=== PATIENT | female | born 1990 | race Caucasian/White ===

== ENCOUNTER 2018-07-02 16:35 | Emergency (ER) | payer BC ==
--- NOTE | 2018-07-02 17:40 | ED ---
SOB HPI - General Chief Complaint: Shortness of Breath Stated Complaint: Sob Time Seen by Provider: 07/02/18 17:21 Source: patient, RN notes reviewed Mode of arrival: wheelchair Limitations: no limitations - History of Present Illness Initial Comments: This is a 28-year-old female who presents to the emergency department with chief complaint of shortness of breath. Patient states that approximately an hour and half ago she was at work. 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 She states that she had sudden onset of shortness of breath, stating she felt she could not catch her breath. Patient states that she is 8 weeks . She denies any chest pain, cough, fever or chills, abdominal pain, nausea or vomiting. She states that while here in the emergency department, her symptoms have improved. - Related Data Allergies Allergy/AdvReac Type Severity Reaction Status Date / Time No Known Allergies Allergy Verified 07/02/18 16:39 Review of Systems ROS Statement: Those systems with pertinent positive or pertinent negative responses have been documented in the HPI. ROS Other: All systems not noted in ROS Statement are negative. Past Medical History Past Medical History: No Reported History History of Any Multi-Drug Resistant Organisms: None Reported Past Surgical History: No Surgical Hx Reported Past Psychological History: Anxiety Smoking Status: Never smoker Past Alcohol Use History: None Reported Past Drug Use History: None Reported General Exam - General Exam Comments Initial Comments: General: Awake and alert, well-developed; in no apparent distress. HEENT: Head atraumatic, normocephalic. Pupils are equal, round and reactive to light. Extraocular movements intact. Oropharynx moist without erythema or exudate. Neck: Supple. Normal ROM. Cardiovascular: Regular rate and rhythm. No murmurs, rubs or gallops. Chest symmetrical. Respiratory: Lungs clear to auscultation bilaterally. No wheezes, rales or rhonchi. Normal respiratory effort with no use of accessory muscles. Musculoskeletal: Normal ROM, no tenderness bilateral upper and lower extremities. Ambulating normally. Skin: [place], warm and dry without rashes or lesions. Neurological: Alert and oriented x3. CN II-XII grossly intact. Speech is fluent and answers are appropriate. No focal neuro deficits. Psychiatric: Normal mood and affect. No overt signs of depression or anxiety noted. Limitations: no limitations (Temperature 97.8, pulse 69, respirations 20, blood pressure 116/77, 100% on room air) Course Vital Signs 07/02/18 07/02/18 16:37 17:39 Temperature 97.8 F Pulse Rate 69 Respiratory 20 20 Rate Blood Pressure 116/77 O2 Sat by Pulse 100 Oximetry Medical Decision Making - Medical Decision Making This is a 28-year-old female, currently 8 weeks , who presents to the emergency department with a chief complaint of shortness of breath. Patient denies chest pain. Vital signs are stable and she is 100% on room air. EKG was obtained which revealed sinus bradycardia with normal rhythm. Discussed with patient increased risk of blood clots in and obtaining a d-dimer , however patient refuses at this time. Patient states her symptoms have improved. She states she will follow-up with her primary care provider. This case was discussed with attending physician, Dr. Cowan. Patient's vital signs have been stable throughout emergency department stay and she is in no acute distress. She will be discharged home at this time. She is in agreement and voices understanding. All questions were answered. - EKG Data EKG Comments: 7156:[id number]. Sinus bradycardia. Low voltage QRS. Ventricular rate 51 bpm, MA interval 158, QRS duration 88, QT/QTc 448/412. Disposition Clinical Impression: Shortness of breath Disposition: HOME SELF-CARE Condition: Good Instructions: Shortness of Breath (ED) Additional Instructions: Please follow up with primary care provider within 1-2 days. Return to emergency department if symptoms should worsen or any concerns arise. Is patient prescribed a controlled substance at d/c from ED?: No Referrals: Todd Vazquez DO [Primary Care Provider] - 1-2 days Time of Disposition: 18:28
[2018-07-02 18:41] VITALS: BP 100/58; PULSE 73; RESP 16; TEMP 98.3
== END 2018-07-02 18:41 | disposition home or self-care (01) ==
LOC: EC 16:35
DX: O99.89 Other specified diseases and conditions complicating pregnancy, childbirth and the puerperium (principal); R06.02 Shortness of breath; R00.1 Bradycardia, unspecified; Z3A.08 8 weeks gestation of pregnancy
CPT/HCPCS: 93005; 99284

== ENCOUNTER 2018-10-21 01:30 | Outpatient (CLI) | payer OTHER, BC ==
[2018-10-21 02:11] LABS: Appearance,Urine Clear (Clear); Bacteria,Urine Occasional /hpf; Bilirubin,Urine Negative (Negative); Blood,Urine Negative (Negative); Color,Urine Light Yellow; Glucose,Urine (UA) Negative (Negative); Ketones,Urine Negative (Negative); Leukocyte Esterase,Urine Small (Negative); Mucus,Urine Rare /hpf; Nitrite,Urine Negative (Negative); Protein,Urine Negative (Negative); RBC,Urine 2 /hpf (0-5); Specific Gravity,Urine 1.004 (1.001-1.035); Squamous Epithelial Cell,Urine <1 /hpf (0-4); Urobilinogen,Urine <2.0 mg/dL (<2.0); WBC,Urine 4 /hpf (0-5)
[2018-10-21 02:57] VITALS: BP 120/68; PULSE 75; RESP 16; TEMP 97.3
--- NOTE | 2018-11-11 17:47 | P.MSEPDOC ---
Presenting Problems - Arrival Data Date of Arrival on Unit: 10/21/18 Time of Arrival on Unit: 01:30 Mode of Transport: Wheelchair - Complaint OB-Reason for Admission/Chief Complaint: Vaginal Bleeding Comment: pink spotting with wiping x3. Medical History - Information : 1 Para: 0 Term: 0 : 0 Abortions: Spontaneous or Elective: 0 Number of Living Children: 0 - Gestational Age Gestational Age by WILLIAM (wks/days): 24 Weeks and 2 Days Review of Systems - Review of Systems Constitutional: No problems Breast: No problems ENT: No problems Cardiovascular: No problems Respiratory: No problems Gastrointestinal: No problems Genitourinary: No problems Musculoskeletal: No problems Neurological: No problems Skin: No problems Vital Signs - Temperature Temperature: 97.3 F Temperature Source: Temporal Artery Scan - Pulse Right Sitting Brachial Pulse Rate: 75 Pulse Assessment Method: Automatic Cuff - Respirations Respiratory Rate: 16 Oxygen Delivery Method: Room Air - Blood Pressure Right Arm Sitting Blood Pressure: 120/68 Blood Pressure Mean: 85 Blood Pressure Source: Automatic Cuff Medical Screen Scoring (Pre) - Cervical Exam Dilation: 0 cm = 0 Membranes: Intact - Uterine Contractions Frequency: N/A Duration: N/A Intensity: N/A - Maternal Vital Signs Maternal Temperature: N/A Maternal Blood Pressure: N/A Signs of Preeclampsia: N/A Maternal Respirations: N/A - Pain Assessment Pain Scale Used: Numeric (1 - 10) Pain Intensity: 0 - Assessment Baseline FHR: 150 Heart Rate - NICHD Category: Category I (Normal) = 0 - Total Score Total Score (Pre): 0 - Level of Risk Level of Risk: Low (0-5) Physician Notification (Pre) - Physician Notified Physician Notified Date: 10/21/18 Physician Notified Time: 01:50 Physician/Practitioner Notifed:: carmencita Spoke With: carmencita New Order Received: Yes - Notification Comment Comment: spec, FFN, UA, SVE Disposition - Disposition OB Disposition: Discharge to home Discharge Date: 10/21/18 Discharge Time: 03:00 I agree with the RN Medical Screening Exam: Yes Risk & Benefit of care provided described in d/c instruction: Yes Diagnosis: ABNORMAL UTERINE AND VAGINAL BLEEDING, UNSPECIFIED
== END 2018-10-21 03:00 | disposition home or self-care (01) ==
LOC: FBPOP 01:30
PROVIDERS: ATTEND Obstetrics & Gynecology
DX: O46.92 Antepartum hemorrhage, unspecified, second trimester (principal); Z3A.24 24 weeks gestation of pregnancy
CPT/HCPCS: 81001; 82731; 99213

== ENCOUNTER → 2018-10-28 | Outpatient (CLI) | payer OTHER, BC ==
[2018-10-28 10:55] LABS: HCT 37.5 % (34.0-46.0); HGB 12.8 gm/dL (11.4-16.0); MCH 32.4 pg (25.0-35.0); MCV 95.4 fL (80.0-100.0); Mean Platelet Volume 6.7; Platelet Count 260 k/uL (150-450); RBC 3.93 m/uL (3.80-5.40); RDW 13.5 % (11.5-15.5); WBC 10.4 k/uL (3.8-10.6)
== END ==
LOC: LABWHC1 09:08
PROVIDERS: ATTEND Obstetrics & Gynecology
DX: Z34.02 Encounter for supervision of normal first pregnancy, second trimester (principal); Z3A.00 Weeks of gestation of pregnancy not specified
CPT/HCPCS: 36415; 82950; 85027

== ENCOUNTER 2019-02-07 10:44 | Inpatient (IN) | payer BC ==
[2019-02-07 11:13] VITALS: BMI 30.7
[2019-02-07] MEDS ORDERED: CITRIC ACID-SODIUM CITRATE 15 ML CUP PO ONE (11:23)
[2019-02-07] MEDS ORDERED: LACTATED RINGERS 1,000 ML IV ONE (11:23)
[2019-02-07] MEDS ORDERED: LACTATED RINGERS 1,000 ML IV SCH (11:30)
[2019-02-07] MEDS ORDERED: ceFAZolin IN SWFI 2 GM/20 ML SYRINGE IVP ONE (11:45)
[2019-02-07 12:09] LABS: Basophils % (A) 0 %; Eosinophils # (A) 0.2 k/uL (0-0.7); Eosinophils % (A) 2 %; HCT 42.7 % (34.0-46.0); HGB 14.7 gm/dL (11.4-16.0); Lymphocytes # (A) 1.2 k/uL (1.0-4.8); Lymphocytes % (A) 12 %; MCH 32.5 pg (25.0-35.0); MCHC 34.5 g/dL (31.0-37.0); MCV 94.3 fL (80.0-100.0); Mean Platelet Volume 7.9; Monocytes # (A) 0.5 k/uL (0-1.0); Monocytes % (A) 5 %; Neutrophils # (A) 7.8 k/uL (1.3-7.7); Neutrophils % (A) 79 %; Platelet Count 297 k/uL (150-450); RBC 4.53 m/uL (3.80-5.40); RDW 14.1 % (11.5-15.5); WBC 9.8 k/uL (3.8-10.6)
[2019-02-07] MEDS ORDERED: ePHEDrine SULFATE/0.9% NACL/PF 50 MG/5 ML SYRINGE IV ONE (12:45)
[2019-02-07] MEDS ORDERED: NALBUPHINE 10 MG/ML (1 ML AMP) ONE (12:45)
[2019-02-07] MEDS ORDERED: ONDANSETRON 4 MG/2 ML VIAL ONE (12:45)
[2019-02-07] MEDS ORDERED: OXYTOCIN 10 UNIT/ML 1 ML VIAL ONE (12:45)
[2019-02-07] MEDS ORDERED: LACTATED RINGERS 1,000 ML BAG IV ONE (12:45)
[2019-02-07] MEDS ORDERED: fentaNYL (PF) 50 MCG/ML 2 ML AMP ONE (12:45)
[2019-02-07] MEDS ORDERED: MORPHINE SULFATE (PF) 0.3 MG/0.3 ML SYR ONE (12:45)
[2019-02-07] MEDS ORDERED: KETOROLAC 30 MG/ML 1 ML VIAL ONE (12:45)
[2019-02-07] MEDS ORDERED: ACETAMINOPHEN TAB 325 MG TAB PO PRN (13:32)
[2019-02-07] MEDS ORDERED: SIMETHICONE 80 MG CHEWABLE PO PRN (13:32)
[2019-02-07] MEDS ORDERED: ONDANSETRON 4 MG/2 ML VIAL IVP PRN (13:32)
[2019-02-07] MEDS ORDERED: LANOLIN CREAM 5 GM TUBE TOPICAL PRN (13:32)
[2019-02-07] MEDS ORDERED: NALOXONE 0.4 MG/ML 1 ML VIAL IV PRN (13:32)
[2019-02-07] MEDS ORDERED: diphenhydrAMINE 50 MG/ML 1 ML VIAL IVP PRN (13:32)
[2019-02-07] MEDS ORDERED: METOCLOPRAMIDE 5 MG/ML 2 ML VIAL IVP PRN (13:32)
[2019-02-07] MEDS ORDERED: KETOROLAC 30 MG/ML 1 ML VIAL IVP PRN (13:32)
[2019-02-07] MEDS ORDERED: ZOLPIDEM 5 MG TAB PO PRN (13:32)
[2019-02-07] MEDS ORDERED: diphenhydrAMINE 25 MG CAP PO PRN (13:32)
[2019-02-07] MEDS ORDERED: OXYTOCIN 20 UNITS/1000 ML NS 1,000 ML IV SCH (13:45)
[2019-02-07] MEDS: LACTATED RINGERS 1,000 ML IV SCH ×2 (15:32→23:01)
--- NOTE | 2019-02-07 18:10 | P.HPOB ---
History of Present Illness H&P Date: 02/07/19 Chief Complaint: Sent from the office for delivery This patient is a pleasant 28-year-old 1 para 0 female estimated date of confinement 02/08/2019 estimated gestational age 39-6/7 weeks who was in my office today for a nonstress test because she was going to be overdue this weekend. The office patient had a category 2 heart rate tracing. She had multiple variable decelerations to of which were deep in nature. heart tones otherwise were reassuring with some variability. Patient's cervix is closed and thick. I discussed the concern and need for delivery at this time and we did discuss the route of delivery including trial of Cervidil versus out right due to category 2 heart tones. Patient is requesting C- section this time. care otherwise has been uncomplicated with the exception of persistent breech until approximately 2 weeks ago. Review of Systems Genitourinary: Reports Menstruation: Reports amenorrhea Past Medical History Past Medical History: No Reported History History of Any Multi-Drug Resistant Organisms: None Reported Past Surgical History: No Surgical Hx Reported Additional Past Surgical History / Comment(s): wisdom teeth Past Anesthesia/Blood Transfusion Reactions: No Reported Reaction Past Psychological History: Anxiety Smoking Status: Never smoker Past Alcohol Use History: None Reported Past Drug Use History: None Reported - Past Family History Mother Family Medical History: No Reported History Medications and Allergies Home Medications Medication Instructions Recorded Confirmed Type Pnv,Calcium 72/Iron/Folic Acid 1 tab PO DAILY 10/21/18 02/07/19 History [ Plus Tablet] Allergies Allergy/AdvReac Type Severity Reaction Status Date / Time No Known Allergies Allergy Verified 10/21/18 01:47 Exam Vital Signs Temp Pulse Resp BP Pulse Ox 02/07/19 16:00 98.4 F 76 20 134/70 96 02/07/19 15:36 97.7 F 78 14 129/79 98 02/07/19 15:06 97.8 F 83 14 123/76 97 02/07/19 14:36 97.7 F 76 14 122/73 97 02/07/19 14:21 97.0 F L 77 14 117/72 02/07/19 14:06 92 14 122/58 97 02/07/19 13:51 96.5 F L 77 14 113/69 97 02/07/19 13:36 96.5 F L 80 14 132/87 02/07/19 11:06 97.9 F 98 14 132/87 Intake and Output 02/07/19 02/07/19 02/07/19 06:59 14:59 22:59 Intake Total 540 Output Total 850 Balance -850 540 Intake: Oral 540 Output: Urine 850 Other: Voiding Method Indwelling Catheter Weight 83.915 kg - OBG Physical Exam Abdomen: bowel sounds normal, no diffuse tenderness, no bruit present, no guar ding noted, no hepatomegaly, no splenomegaly, no mass Vulva: both: normal Vagina: normal moisture, no discharge Cervix: no lesion (Cervix is closed and thick), no discharge Results labs show she is O positive, rubella immune, RPR nonreactive, HIV nonreactive, hepatitis B negative, Glucola was normal, group B strep was negative, ultrasounds have been normal. There was a question early in her about a possible bicornuate uterus however there is no evidence of this. Result Diagrams: 02/07/19 10:55 Abnormal Lab Results - Last 24 Hours (Table) 02/07/19 Range/Units 10:55 Neutrophils # 7.8 H (1.3-7.7) k/uL Assessment and Plan Assessment: This is a pleasant 28-year-old 1 para 0 female 39-6/7 weeks gestation with category 2 heart tones consisting of repetitive variable decelerations in the office. heart tones are reassuring at this time rhodes antonella due to the variables I recommended proceed with delivery at this time. We discussed route of delivery including trial of Cervidil versus outright C- section due to unfavorable cervix and she is requesting section this time. Plan is primary low transverse section. Patient I discussed the surgery and risks and risks of infection, bleeding, possible injury bowel, bladder, vessels, and other organs. All the patient's questions are answered written consent is obtained. (1) 40 weeks gestation of Current Visit: Yes Status: Acute Code(s): Z3A.40 - 40 WEEKS GESTATION OF SNOMED Code(s): 34583955 (2) Non-reassuring electronic monitoring tracing Current Visit: Yes Status: Acute Code(s): O76 - ABNLT IN HEART RATE AND RHYTHM COMP LABOR AND DELIVERY SNOMED Code(s): 910017995
--- NOTE | 2019-02-07 18:21 | P.OP ---
Date of Procedure: 02/07/19 Preoperative Diagnosis: #1: 39-6/7 week . #2: Category 2 heart tones remote from delivery Postoperative Diagnosis: Same Procedure(s) Performed: Primary low transverse section. Anesthesia: spinal Surgeon: Wesley Hdz International Operations Manager #1: Mandi Tang Estimated Blood Loss (ml): 800 Pathology: other (Placenta) Condition: stable Disposition: floor Indications for Procedure: Please see dictated H&P for intimate details of this patient's admission. In brief summary this is a pleasant 28-year-old 1 para 0 female 39-6/7 weeks gestation who presents for delivery secondary to repetitive variable decelerations in the office on nonstress testing. Patient I discussed route of delivery and plan is to proceed with section secondary to unfavorable cervix. Patient does understand the surgery and risks and risks of infection, bleeding, possible injury bowel upon bladder, vessels, and other organs. All the patient's questions are answered written consent is obtained. Operative Findings: This is a vigorous viable female Apgars 8 and 9 delivery time is 1307 hrs. has a hand presenting before the head but otherwise the placenta and umbilical cord appeared normal. Description of Procedure: This patient has a Fernandez catheter placed to straight drain. Patient is subsequently taken to the operating room where she is sat up and spinal anesthetic is administered without incident. With adequate level of anesthesia she has abdominal prep and drape. Scalpels then taken and a Pfannenstiel skin incision is then made. A second scalpel is taken down the fascia and the fascia scored with a knife. Fascial incision extended bilaterally using the Soto scissors. Fascia is then dissected off the rectus muscles rectus muscles are and the peritoneum was entered sharply. Peritoneal incision extended superior and inferior without difficulty. Bladder blade is then placed. Bladder peritoneum taken sharply off the lower uterine segment. Scalpels then taken a low transverse uterine incision is then made. Using a hemostat I into the uterine cavity bluntly there is loss of clear fluid. This incision is then extended bluntly. 's head is then guided through the incision with fundal pressure delivered. Mouth and nares are bulb suctioned. There is no evidence of a nuchal cord. With this done we have delivery the rest this infant's body. This is a vigorous viable female infant Apgars are 8 and 9 delivery time is 1307 hrs. After delivery of the the umbilical cord is doubly clamped and cut appears to be trivascular. is then handed off to the nurses in attendance. Placenta is then manually extracted intact uterine cavity is then explored and all tissue removed. It does not appear to be bicornuate. The uter us is then externalized and uterine incision demarcated with Jesus clamps. Uterine incision then closed using 0 Vicryl running locked fashion 2 layers. Excellent hemostasis is noted bladder peritoneum was then closed using a 3-0 Vicryl usual fashion. Excess fluid is removed from the abdomen and pelvis. Uterus placed back into the abdomen. Parietal peritoneum was then closed in 0 Vicryl running fashion. Rectus muscle reapproximate 0 Vicryl interrupted fashion. Fascial incision is closed using 0 PDS running fashion fascial incision is intact and hemostatic. Subcutaneous tissues and closed using a 3-0 Vicryl. Skin is then closed using maria ines. Sterile dressing is applied. Patient is then taken to the birthing suite in satisfactory condition. All counts are correct 3. There are no complications.
[2019-02-07] MEDS: SENNOSIDES-DOCUSATE SODIUM 1 EACH TAB PO SCH (20:11)
[2019-02-07 20:46] VITALS: RESP 16
[2019-02-08] MEDS: IBUPROFEN 600 MG TAB PO PRN ×3 (06:15→18:49)
[2019-02-08] MEDS: LACTATED RINGERS 1,000 ML IV SCH ×2 (06:16→20:29)
[2019-02-08] MEDS: SENNOSIDES-DOCUSATE SODIUM 1 EACH TAB PO SCH ×2 (07:17→20:14)
[2019-02-08 07:42] LABS: Basophils % (A) 0 %; Eosinophils # (A) 0.1 k/uL (0-0.7); Eosinophils % (A) 1 %; HCT 36.8 % (34.0-46.0); HGB 12.4 gm/dL (11.4-16.0); Lymphocytes % (A) 10 %; MCH 31.8 pg (25.0-35.0); MCHC 33.6 g/dL (31.0-37.0); MCV 94.6 fL (80.0-100.0); Mean Platelet Volume 7.7; Monocytes # (A) 0.6 k/uL (0-1.0); Monocytes % (A) 5 %; Neutrophils # (A) 8.8 k/uL (1.3-7.7); Neutrophils % (A) 83 %; Platelet Count 228 k/uL (150-450); RBC 3.89 m/uL (3.80-5.40); RDW 14.2 % (11.5-15.5); WBC 10.7 k/uL (3.8-10.6)
--- NOTE | 2019-02-08 07:51 | P.PNOBGPC ---
Subjective - Subjective Patient reports: Reports appetite normal, Reports voiding normally, Reports pain well controlled, Reports ambulating normally : doing well Objective - Vital Signs Latest vital signs: Vital Signs Temp Pulse Resp BP Pulse Ox 02/08/19 07:28 97.5 F L 81 16 106/65 96 02/08/19 04:00 98.1 F 77 16 117/61 02/08/19 00:00 98.2 F 80 16 110/63 98 02/07/19 20:00 83 16 110/70 98 02/07/19 16:00 98.4 F 76 20 134/70 96 02/07/19 15:36 97.7 F 78 14 129/79 98 02/07/19 15:06 97.8 F 83 14 123/76 97 02/07/19 14:36 97.7 F 76 14 122/73 97 02/07/19 14:21 97.0 F L 77 14 117/72 02/07/19 14:06 92 14 122/58 97 02/07/19 13:51 96.5 F L 77 14 113/69 97 02/07/19 13:36 96.5 F L 80 14 132/87 02/07/19 11:06 97.9 F 98 14 132/87 Intake and Output 02/07/19 02/08/19 02/08/19 22:59 06:59 14:59 Intake Total 540 Output Total 1999 2500 Balance -1460 -2500 Intake: Oral 540 Output: Urine 1999 2500 Other: Voiding Method Indwelling Catheter - Exam Lungs: bilateral: normal Chest: Normal S1, Normal S2 Extremities: Present: normal Abdomen: Present: normal appearance, soft. Absent: distention, tenderness Incision: Present: normal, dry, intact Uterus: Present: normal, firm - Labs Labs: Abnormal Lab Results - Last 24 Hours (Table) 02/07/19 02/08/19 Range/Units 10:55 06:37 WBC 10.7 H (3.8-10.6) k/uL Neutrophils # 7.8 H 8.8 H (1.3-7.7) k/uL Assessment and Plan Assessment: Postoperative day #1. Patient is resting without complaints. Vital signs are stable she is afebrile. Uterus is firm nontender she's having normal lochia. Her incision is intact and dry. Plan today is to advance to regular diet, allow the patient to shower, encourage ambulation, and check a CBC. (1) 40 weeks gestation of Current Visit: Yes Status: Acute Code(s): Z3A.40 - 40 WEEKS GESTATION OF SNOMED Code(s): 46817766 (2) Non-reassuring electronic monitoring tracing Current Visit: Yes Status: Acute Code(s): O76 - ABNLT IN HEART RATE AND RHYTHM COMP LABOR AND DELIVERY SNOMED Code(s): 007667740
--- NOTE | 2019-02-08 10:32 | P.PN ---
Progress Note - Text Progress Note Date: 02/08/19 28-year-old female status post section with Duramorph spinal postop day #1. Patient had complaints of pruritus and if subsided. No motor sensory deficits. Ambulating without issue. Overall patient is doing well
[2019-02-08] MEDS: HYDROcodone/APAP 5-325MG 1 EACH TAB PO PRN ×2 (15:50→20:15)
[2019-02-09] MEDS: IBUPROFEN 600 MG TAB PO PRN ×2 (01:15→08:11)
[2019-02-09] MEDS: HYDROcodone/APAP 5-325MG 1 EACH TAB PO PRN ×2 (03:57→12:02)
--- NOTE | 2019-02-09 07:59 | P.PNOBGPC ---
Subjective - Subjective Patient reports: Reports appetite normal, Reports voiding normally, Reports pain well controlled, Reports ambulating normally : doing well Objective - Vital Signs Latest vital signs: Vital Signs Temp Pulse Resp BP Pulse Ox 02/09/19 00:00 98.3 F 73 16 110/69 02/08/19 15:00 97.7 F 71 16 119/72 97 02/08/19 12:00 98.3 F 86 16 106/65 Intake and Output 02/08/19 02/09/19 02/09/19 22:59 06:59 14:59 Other: # Voids 2 - Exam Lungs: bilateral: normal Chest: Normal S1, Normal S2 Extremities: Present: normal Abdomen: Present: normal appearance, soft. Absent: distention, tenderness Incision: Present: normal, dry, intact Uterus: Present: normal, firm Assessment and Plan Assessment: Postoperative day #2. Patient is resting without complaints and wishes to go home. Vital signs are stable she is afebrile. Uterus is firm nontender and her incision is intact and dry. Patient is tolerating regular diet, ambulating, ur inating without difficulty. Patient's felt to be stable for discharge home. Plan is to continue routine postoperative care and discharge home later today (1) 40 weeks gestation of Current Visit: Yes Status: Acute Code(s): Z3A.40 - 40 WEEKS GESTATION OF SNOMED Code(s): 27420823 (2) Non-reassuring electronic monitoring tracing Current Visit: Yes Status: Acute Code(s): O76 - ABNLT IN HEART RATE AND RHYTHM COMP LABOR AND DELIVERY SNOMED Code(s): 823479629
--- NOTE | 2019-02-09 08:07 | P.DS ---
Providers Date of admission: 02/07/19 10:44 Expected date of discharge: 02/09/19 Attending physician: Wesley Hdz Primary care physician: Stated None - Discharge Diagnosis(es) (1) 40 weeks gestation of Current Visit: Yes Status: Acute (2) Non-reassuring electronic monitoring tracing Current Visit: Yes Status: Acute Hospital Course: Please see dictated H&P for intimate details of this patient's admission. Brief summary this is a pleasant 28-year-old 1 para 0 female 39-6/7 weeks gestation who is admitted from my office with category 2 heart tones and subsequent undergoes a primary low transverse section for viable female infant. Please see dictated operative note. Postoperative 2 patient's felt be stable for discharge home follow up with me in 1 week. Procedures: Primary low transverse section Patient Condition at Discharge: Good Plan - Discharge Summary Discharge Rx Participant: Yes New Discharge Prescriptions: New Ibuprofen [Motrin] 600 mg PO Q6HR PRN #40 tab PRN Reason: Mild Pain Or Fever >= 100.5 HYDROcodone/APAP 5-325MG [Rock 5-325] 2 each PO Q4HR PRN #36 tab PRN Reason: Moderate Pain No Action Pnv,Calcium 72/Iron/Folic Acid [ Plus Tablet] 1 tab PO DAILY Discharge Medication List Pnv,Calcium 72/Iron/Folic Acid [ Plus Tablet] 1 tab PO DAILY 10/21/18 [History] HYDROcodone/APAP 5-325MG [Rock 5-325] 2 each PO Q4HR PRN #36 tab 02/09/19 [Rx] Ibuprofen [Motrin] 600 mg PO Q6HR PRN #40 tab 02/09/19 [Rx] Follow up Appointment(s)/Referral(s): Wesley Hdz MD [STAFF PHYSICIAN] - 1 Week (Please see me in approximately 1 week for an incision check and in 6 weeks for a check.) Patient Instructions/Handouts: (DC) Activity/Diet/Wound Care/Special Instructions: No heavy lifting or strenuous activity for 6 weeks. Please call if any fever, chills, excessive vaginal bleeding, and/or abdominal pain. Discharge Disposition: HOME SELF-CARE
[2019-02-09] MEDS: SENNOSIDES-DOCUSATE SODIUM 1 EACH TAB PO SCH (08:11)
[2019-02-09 08:14] VITALS: BP 124/61; PULSE 65; TEMP 98
== END 2019-02-09 13:23 | disposition home or self-care (01) | DRG 788 ==
LOC: 4FBP 10:44
PROVIDERS: ADMIT Obstetrics & Gynecology; ATTEND Obstetrics & Gynecology
PROC: 10D00Z1 Extraction of Products of Conception, Low, Open Approach (ICD-10-PCS; principal; 2019-02-07 12:00)
DX: O76 Abnormality in fetal heart rate and rhythm complicating labor and delivery (principal); Z37.0 Single live birth; Z3A.39 39 weeks gestation of pregnancy; L29.9 Pruritus, unspecified; Z79.899 Other long term (current) drug therapy; Z86.59 Personal history of other mental and behavioral disorders
CPT/HCPCS: 85025; 86850; 86900; 86901; 88307

== ENCOUNTER 2021-04-11 14:00 | Emergency (ER) | payer BC, OTHER ==
[2021-04-11 14:08] VITALS: BP 111/74; PULSE 75; RESP 18; TEMP 98.1
[2021-04-11] MEDS ORDERED: KETOROLAC 15 MG/ML 1 ML VIAL IM STA (14:36)
--- NOTE | 2021-04-11 14:40 | ED ---
General Adult HPI - General Chief complaint: Recheck/Abnormal Lab/Rx Stated complaint: Rib pain Time Seen by Provider: 04/11/21 14:21 Source: patient, RN notes reviewed Mode of arrival: ambulatory Limitations: no limitations - History of Present Illness Initial comments: Patient is a 30-year-old female that presents to emergency room complaining of left-sided anterior rib pain. She noted that she was gardening over the weekend when she was using tree cutters/nippers to cut tree branches and was using her chest to brace on the handles. She noted that while cutting with a branches and applying a good amount of force to the hand on her chest she felt a pop in some pain. She notes that she tried taking Tylenol at home with no relief. She noted the pain is approximately 3 out of 10 when she is not moving and resting but when she starts moving around that shoots up to a 6 out of 10. She notes that it is comfortable to take deep breaths as it causes the pain increased. She noted that she does have some point tenderness over the anterior left chest just inferior the clavicle. She noted that she also does have some muscle tightness and tenderness in her left side and neck and upper back. She denied any history of asthma spontaneous pneumothorax. She denied any headache nausea vomiting diarrhea constipation fever fatigue chills. - Related Data Home Medications Medication Instructions Recorded Confirmed Pnv,Calcium 72/Iron/Folic Acid 1 tab PO DAILY 10/21/18 02/07/19 [ Plus Tablet] Previous Rx's Medication Instructions Recorded HYDROcodone/APAP 5-325MG [[place] 2 each PO Q4HR PRN #36 tab 02/09/19 5-325] Ibuprofen [Motrin] 600 mg PO Q6HR PRN #40 tab 02/09/19 Allergies Allergy/AdvReac Type Severity Reaction Status Date / Time No Known Allergies Allergy Verified 04/11/21 14:05 Review of Systems ROS Statement: Those systems with pertinent positive or pertinent negative responses have been documented in the HPI. ROS Other: All systems not noted in ROS Statement are negative. Past Medical History Past Medical History: No Reported History History of Any Multi-Drug Resistant Organisms: None Reported Past Surgical History: Section Additional Past Surgical History / Comment(s): wisdom teeth Past Anesthesia/Blood Transfusion Reactions: No Reported Reaction Past Psychological History: Anxiety Smoking Status: Never smoker Past Alcohol Use History: Occasional Past Drug Use History: None Reported - Past Family History Mother Family Medical History: No Reported History General Exam Limitations: no limitations General appearance: alert, in no apparent distress, other (Point tenderness over the left chest just inferior the clavicle.) Head exam: Present: atraumatic, normocephalic, normal inspection Eye exam: Present: normal appearance, PERRL, EOMI. Absent: scleral icterus, conjunctival injection, periorbital swelling Neck exam: Present: normal inspection, tenderness (Left trapezius to moderate palpation.), full ROM Respiratory exam: Present: normal lung sounds bilaterally. Absent: respiratory distress, wheezes, rales, rhonchi, stridor Cardiovascular Exam: Present: regular rate, normal rhythm, normal heart sounds. Absent: systolic murmur, diastolic murmur, rubs, gallop, clicks GI/Abdominal exam: Present: soft, normal bowel sounds. Absent: distended, tenderness, guarding, rebound, rigid Extremities exam: Present: normal inspection, full ROM, normal capillary refill. Absent: tenderness, pedal edema, joint swelling, calf tenderness Neurological exam: Present: alert, oriented X3 Psychiatric exam: Present: normal affect, normal mood Skin exam: Present: warm, dry, intact, normal color. Absent: rash Course Vital Signs 04/11/21 14:05 Temperature 98.1 F Pulse Rate 75 Respiratory 18 Rate Blood Pressure 111/74 O2 Sat by Pulse 98 Oximetry Medical Decision Making - Medical Decision Making 30-year-old female complaining of left-sided chest pain after injury while using gardening clippers to cut tree branches. x-ray of the ribs, 15 mg of Toradol ordered. X-ray negative for any acute fractures. Most likely rib contusion from increased pressure and force from gardening linda. Case discussed with Dr. Bhatti, patient discharge home with follow-up to primary care. - Radiology Data Radiology results: report reviewed, image reviewed Rib x-ray: No acute displaced rib fractures identified bilaterally. Overlying soft tissue was unremarkable. Disposition Clinical Impression: Contusion of rib on left side Disposition: HOME SELF-CARE Condition: Stable Instructions (If sedation given, give patient instructions): Rib Contusion (ED) Additional Instructions: Please return to the Emergency Department if symptoms worsen or any other concerns. Use incentive spirometry every 1-2 hours for the next week to 10 days. The breast will cause some irritation but it is important to prevent pneumonias. Take, Motrin as needed for pain control. Follow-up with primary care in the next 3-5 days. Avoid using chest as support brace for gardening linda. Is patient prescribed a controlled substance at d/c from ED?: No Referrals: Todd Vazquez DO [Primary Care Provider] - 1-2 days Time of Disposition: 16:02
--- NOTE | 2021-04-11 15:19 | XR ---
EXAMINATION TYPE: XR ribs bilateral DATE OF EXAM: 04/11/2021 COMPARISON: NONE HISTORY: Left greater than right rib pain after injury. TECHNIQUE: A frontal and oblique images of the bilateral ribs. FINDINGS: No acute displaced rib fractures identified bilaterally. The overlying soft tissue is unrem arkable. IMPRESSION: As above.
== END 2021-04-11 14:30 | disposition home or self-care (01) ==
LOC: EC 14:00
DX: S20.212A Contusion of left front wall of thorax, initial encounter (principal); F41.9 Anxiety disorder, unspecified; X58.XXXA Exposure to other specified factors, initial encounter; Y93.H2 Activity, gardening and landscaping
CPT/HCPCS: 71110; 99283; 96372; J1885

== ENCOUNTER 2022-10-25 18:41 | Emergency (ER) | payer BC ==
[2022-10-25 19:36] VITALS: RESP 16
--- NOTE | 2022-10-25 20:10 | XR ---
EXAMINATION TYPE: XR chest 2V DATE OF EXAM: 10/25/2022 7:57 PM COMPARISON: Chest radiographs from 04/11/2021 TECHNIQUE: XR chest 2V Frontal and lateral views of the chest. CLINICAL INDICATION:Female, 32 years old with history of cough SOB; FINDINGS: Lungs/Pleura: There is no evidence of pleural effusion, focal consolidation, or pneumothorax. Pulmonary vascularity: Unremarkable. Heart/mediastinum: Cardiomediastinal silhouette is unremarkable. Musculoskeletal: No acute osseous pathology. IMPRESSION: No acute cardiopulmonary disease/process.
[2022-10-25] MEDS ORDERED: IBUPROFEN 800 MG TAB PO STA (20:44)
[2022-10-25] MEDS ORDERED: ONDANSETRON ODT 4 MG TAB PO STA (20:56)
--- NOTE | 2022-10-25 20:56 | ED ---
General Adult HPI - General Chief complaint: Shortness of Breath Stated complaint: SOB Time Seen by Provider: 10/25/22 20:44 Source: patient Mode of arrival: ambulatory - History of Present Illness Initial comments: Patient is a 32-year-old female presenting to the emergency room with complaints of generalized unwell feeling which began yesterday with worsening of symptoms today with increase in nausea without vomiting along with shortness of breath. She also notes some fevers, chills, and body aches. She has not taken any medications recently. She denies any known exposure to COVID or influenza; she is not vaccinated for COVID or influenza. She denies any other significant past medical history. - Related Data Home Medications Medication Instructions Recorded Confirmed Cough Syrup(Unknown) 1 dose PO Q6H PRN 10/25/22 10/25/22 D-Methorphan/PE/Acetaminophen 2 cap PO Q6H PRN 10/25/22 10/25/22 [[place]icks Dayquil Liquicaps] Sertraline [Zoloft] 50 mg PO HS 10/25/22 10/25/22 l-Norgest/E.estradiol-E.estrad 1 tab PO HS 10/25/22 10/25/22 [Seasonique 0.15-0.03-0.01 Tab] Previous Rx's Medication Instructions Recorded Ondansetron Odt [Zofran Odt] 4 mg PO Q8HR PRN 7 Days #21 tab 10/25/22 Oseltamivir [Tamiflu] 75 mg PO Q12HR 5 Days #10 cap 10/25/22 Allergies Allergy/AdvReac Type Severity Reaction Status Date / Time No Known Allergies Allergy Verified 10/25/22 21:28 Review of Systems ROS Statement: Those systems with pertinent positive or pertinent negative responses have been documented in the HPI. ROS Other: All systems not noted in ROS Statement are negative. Past Medical History Past Medical History: No Reported History History of Any Multi-Drug Resistant Organisms: None Reported Past Surgical History: Section Additional Past Surgical History / Comment(s): wisdom teeth Past Anesthesia/Blood Transfusion Reactions: No Reported Reaction Past Psychological History: Anxiety Smoking Status: Never smoker Past Alcohol Use History: Occasional Past Drug Use History: None Reported - Past Family History Mother Family Medical History: No Reported History General Exam - General Exam Comments Initial Comments: GENERAL: No acute distress, well developed, well nourished. HEENT: Normocephalic, atraumatic. Pupils equal, round, reactive to light. Full range of motion to neck. Moist mucous membranes. LUNGS: Clear to auscultation, no adventitious sounds, no use of accessory muscles. HEART: Regular rate and rhythm without murmur, rub, or gallop. ABDOMEN: Normal bowel sounds. Soft, non-tender, non-distended. DERMATOLOGIC: Skin intact, without rashes or lesions noted. EXTREMITIES: No edema. No tenderness. Moves all extremities. NEUROLOGIC: Alert & oriented x 3. CN II-XII grossly intact. PSYCHIATRIC: Normal affect and behavior. Limitations: no limitations Course Vital Signs 10/25/22 10/25/22 10/25/22 19:31 19:33 21:48 Temperature 102.9 F H 102.9 F H 99.1 F Pulse Rate 66 115 H 92 Respiratory 20 16 16 Rate Blood Pressure 107/70 107/70 106/54 O2 Sat by Pulse 100 100 98 Oximetry Medical Decision Making - Medical Decision Making Was pt. sent in by a medical professional or institution? @ No Did you speak to anyone other than the patient for history? @ No Did you review nursing and triage notes? @ Yes reviewed; symptoms consistent with nursing and triage note. Were old charts reviewed? @ -No Differential Diagnosis? @ -Differential Dyspnea: Coronary syndrome, arrhythmia, tamponade, asthma, COPD, pulmonary embolism, pneumonia, pneumothorax, pulmonary effusion, anaphylaxis, diabetic ketoacidosis, flailed chest, pulmonary contusion, diaphragmatic rupture, anemia, neuromuscular, this is not meant to be an all-inclusive list. EKG interpreted by me (3pts min.)? @ -None X-rays interpreted by me (1pt min.)? @ -Chest x-ray 2 view no pleural effusion or consolidation. No acute ca rdiopulmonary process. CT interpreted by me (1pt min.)? @ -None U/S interpreted by me (1pt. min.)? @ -None What testing was considered but not performed? (CT, X-rays, U/S, labs)? Why? @-CBC and BMP consider in the setting of low-grade temperature and mild tachycardia however good response to oral Zofran and ibuprofen with positive influenza swab laboratory studies deferred. What meds were considered but not given? Why? @ -IV fluids considered but improvement in temperature and heart rate with antipyretic. Did you discuss the management of the patient with other professionals? @ - No Did you reconcile home meds? @ - No Was smoking cessation discussed for >3mins.? @ -Not Applicable Was critical care preformed (if so, how long)? @ - No Were there social determinants of health that impacted care today? How? (Homelessness, low income, unemployed, alcoholism, drug addiction, transportation, low edu. Level, literacy, decrease access to med. care, penitentiary, rehab)? @ -No Was there de-escalation of care discussed even if they declined? (Discuss DNR or withdrawal of care, Hospice)? @ -No What co-morbidities impacted this encounter? (DM, HTN, Smoking, COPD, CAD, Cancer, CVA, Hep., AIDS, mental health diagnosis, sleep apnea, morbid obesity)? @ -None Was patient admitted / discharged? @ -32-year-old female presenting to the emergency room with complaints of shortness of breath and nausea ongoing for the last 48 hours with worsening of symptoms today. Swabs for COVID, RSV and influenza completed by triage along with chest x-ray. Patient positive for influenza A. Chest x-ray with no acute process. Will give ibuprofen along with Zofran for symptoms of fever, mild tachycardia and nausea without vomiting and monitor response. Symptoms improved with ibuprofen and Zofran. No indication for further diagnostic imaging or laboratory studies. No indication for further medications. Will discharge home in stable condition with Tamiflu per discussion with patient along with Zofran. Advise use of ibuprofen or Tylenol [id number] as needed for fevers and body aches. Undiagnosed new problem with uncertain prognosis? @ -None Drug Therapy requiring intensive monitoring for toxicity (Heparin, Nitro, Insulin, Cardizem)? @ -No Were any procedures done? @ -No Diagnosis/symptom? @ -Influenza A Acute, or Chronic, or Acute on Chronic? @ -Acute Uncomplicated (without systemic symptoms) or Complicated (systemic symptoms)? @ -Uncomplicated Side effects of treatment? @ -None Exacerbation, Progression, or Severe Exacerbation] @ -No Poses a threat to life or bodily function? @ -No Case discussed with Dr. Jaramillo. - Lab Data Lab Results 10/25/22 Range/Units 19:36 Influenza Type A (PCR) Detected A (Not Detectd) Influenza Type B (PCR) Not Detected (Not Detectd) RSV (PCR) Not Detected (Not Detectd) SARS-CoV-2 (PCR) Not Detected (Not Detectd) - Radiology Data Radiology results: report reviewed, image reviewed Disposition Clinical Impression: Influenza A Disposition: HOME SELF-CARE Condition: Stable Instructions (If sedation given, give patient instructions): Influenza (ED) Additional Instructions: Please take Tamiflu as prescribed. Please utilize Zofran as needed for nausea. May utilize [id number] ibuprofen or Tylenol as needed for body aches and fevers. Please quarantine until 24 hours fever free. Stay well hydrated. Please return to the Emergency Department if symptoms worsen or any other concerns. Prescriptions: Oseltamivir [Tamiflu] 75 mg PO Q12HR 5 Days #10 cap Ondansetron Odt [Zofran Odt] 4 mg PO Q8HR PRN 7 Days #21 tab PRN Reason: Nausea Is patient prescribed a controlled substance at d/c from ED?: No Referrals: Todd Vazquez DO [Primary Care Provider] - 1-2 days Time of Disposition: 21:47
[2022-10-25 21:50] VITALS: BP 106/54; PULSE 92; TEMP 99.1
== END 2022-10-25 22:08 | disposition home or self-care (01) ==
LOC: EC 18:41
DX: J10.1 Influenza due to other identified influenza virus with other respiratory manifestations (principal); F41.9 Anxiety disorder, unspecified; Z20.822 Contact with and (suspected) exposure to COVID-19
CPT/HCPCS: 71046; 87636; 93005; 99285